=== PATIENT | female | born 1970 | race Caucasian/White ===

== ENCOUNTER → 2019-03-15 | Outpatient (CLI) | payer OTHER, SELFPAY ==
[2019-03-15 10:59] LABS: AST(SGOT) 19 U/L (15-37); Alanine Aminotransfer ALT/SGPT 20 U/L (13-56); Alkaline Phosphatase 58 U/L (45-117); Bilirubin, Direct 0.11 mg/dL (0.00-0.30); Cholesterol 172 mg/dL (200); Globulin 3.7 g/dL (2.2-4.2); High Density Lipoprotein 48 mg/dL; Protein, Total 7.7 g/dL (6.4-8.2); Triglycerides 50 mg/dL; Very Low Density Lipoprotein 10 mg/dL (5-40)
== END | disposition home or self-care (01) ==
LOC: MTLAB 08:02
PROVIDERS: Family Provider Physician Assistant; PCP Physician Assistant; Referring Provider Dermatology; Visit Provider Dermatology
DX: L70.0 Acne vulgaris (principal); Z79.899 Other long term (current) drug therapy
CPT/HCPCS: 36415; 80061; 80076

== ENCOUNTER → 2019-04-12 | Outpatient (CLI) | payer OTHER, SELFPAY ==
[2019-04-12 12:34] LABS: Internal QC Validated? YES +Cl - CLEAR BKGD; Pregnancy, Urine Negative Negative
== END | disposition home or self-care (01) ==
LOC: MTLAB 09:13
PROVIDERS: Family Provider Physician Assistant; PCP Physician Assistant; Referring Provider Dermatology; Visit Provider Dermatology
DX: L70.0 Acne vulgaris (principal); Z79.899 Other long term (current) drug therapy
CPT/HCPCS: 81025

== ENCOUNTER → 2019-05-16 | Outpatient (CLI) | payer OTHER, SELFPAY ==
[2019-05-16 13:33] LABS: Internal QC Validated? YES +Cl - CLEAR BKGD; Pregnancy, Urine Negative Negative
== END | disposition home or self-care (01) ==
LOC: MTLAB 11:50
PROVIDERS: Family Provider Physician Assistant; PCP Physician Assistant; Referring Provider Physician Assistant Medical; Visit Provider Physician Assistant Medical
DX: L70.0 Acne vulgaris (principal); Z79.899 Other long term (current) drug therapy
CPT/HCPCS: 81025

== ENCOUNTER → 2019-06-22 | Outpatient (CLI) | payer OTHER, SELFPAY ==
[2019-06-22 17:27] LABS: Internal QC Validated? YES +Cl - CLEAR BKGD; Pregnancy, Urine Negative Negative
== END | disposition home or self-care (01) ==
LOC: MTLAB 16:27
PROVIDERS: Family Provider Physician Assistant; PCP Physician Assistant; Referring Provider Physician Assistant Medical; Visit Provider Physician Assistant Medical
DX: L70.0 Acne vulgaris (principal); L57.0 Actinic keratosis; Z79.899 Other long term (current) drug therapy
CPT/HCPCS: 81025

== ENCOUNTER → 2019-08-04 08:05 | Outpatient (CLI) | payer OTHER, SELFPAY ==
[2019-08-04 10:39] LABS: Internal QC Validated? YES +Cl - CLEAR BKGD
[2019-08-04 10:40] LABS: Pregnancy, Urine Negative Negative
[2019-08-04 11:03] LABS: AST(SGOT) 20 U/L (15-37); Alanine Aminotransfer ALT/SGPT 19 U/L (13-56); Albumin, Serum 3.8 g/dL (3.2-5.0); Alkaline Phosphatase 66 U/L (45-117); Cholesterol 166 mg/dL (200); Globulin 3.6 g/dL (2.2-4.2); High Density Lipoprotein 45 mg/dL; Protein, Total 7.4 g/dL (6.4-8.2); Triglycerides 64 mg/dL; Very Low Density Lipoprotein 13 mg/dL (5-40)
[2019-08-07 13:56] LABS: LDL, Direct 120295 109 mg/dL (0-99)
== END ==
PROVIDERS: Family Provider Physician Assistant; PCP Physician Assistant; Referring Provider Physician Assistant Medical; Visit Provider Physician Assistant Medical
DX: L70.0 Acne vulgaris (principal); Z79.899 Other long term (current) drug therapy
CPT/HCPCS: 36415; 80061; 80076; 81025; 83721

== ENCOUNTER → 2019-09-08 13:34 | Outpatient (CLI) | payer OTHER, SELFPAY ==
[2019-09-08 15:42] LABS: Internal QC Validated? YES +Cl - CLEAR BKGD; Pregnancy, Urine Negative Negative
== END ==
PROVIDERS: Family Provider Physician Assistant; PCP Physician Assistant; Referring Provider Physician Assistant Medical; Visit Provider Physician Assistant Medical
DX: L70.0 Acne vulgaris (principal); Z79.899 Other long term (current) drug therapy
CPT/HCPCS: 81025

== ENCOUNTER → 2019-10-12 09:56 | Outpatient (CLI) | payer OTHER, SELFPAY ==
[2019-10-12 12:30] LABS: Internal QC Validated? YES +Cl - CLEAR BKGD; Pregnancy, Urine Negative Negative
== END ==
PROVIDERS: Family Provider Physician Assistant; PCP Physician Assistant; Referring Provider Physician Assistant Medical; Visit Provider Physician Assistant Medical
DX: L70.0 Acne vulgaris (principal); Z79.899 Other long term (current) drug therapy; D48.5 Neoplasm of uncertain behavior of skin; L71.8 Other rosacea
CPT/HCPCS: 81025

== ENCOUNTER → 2019-11-10 15:48 | Outpatient (CLI) | payer OTHER, SELFPAY ==
[2019-11-10 18:44] LABS: Internal QC Validated? YES +Cl - CLEAR BKGD; Pregnancy, Urine Negative Negative
== END ==
PROVIDERS: Family Provider Physician Assistant; PCP Physician Assistant; Referring Provider Physician Assistant Medical; Visit Provider Physician Assistant Medical
DX: L70.0 Acne vulgaris (principal); D48.5 Neoplasm of uncertain behavior of skin; Z79.899 Other long term (current) drug therapy; L71.8 Other rosacea
CPT/HCPCS: 81025

== ENCOUNTER → 2019-12-21 15:47 | Outpatient (CLI) | payer OTHER, SELFPAY ==
[2019-12-21 17:42] LABS: Internal QC Validated? YES +Cl - CLEAR BKGD; Pregnancy, Urine Negative Negative
== END ==
PROVIDERS: PCP Physician Assistant; Referring Provider Physician Assistant Medical; Visit Provider Physician Assistant Medical
DX: L70.0 Acne vulgaris (principal); Z79.899 Other long term (current) drug therapy; D48.5 Neoplasm of uncertain behavior of skin
CPT/HCPCS: 81025

== ENCOUNTER → 2022-11-27 | Outpatient (CLI) | payer OTHER, SELFPAY ==
--- NOTE | 2022-11-27 15:32 | US_ITS ---
STUDY: THYROID ULTRASOUND REASON FOR EXAM: Female, 52 years old. Enlarged thyroid. Evaluate for nodules. TECHNIQUE: Ultrasound evaluation of the thyroid was performed with real-time and static cordero-scale imaging. COMPARISON: None. FINDINGS: RIGHT LOBE: The right lobe of the thyroid gland measures 4.8 x 1.9 x 1.5 cm. There is a homogeneous echotexture. There are no demonstrated solid, cystic or complex lesions. Normal color flow and Doppler imaging. LEFT LOBE: The left lobe of the thyroid gland measures 4.5 x 1.6 x 1.0 cm. There is a homogeneous echotexture. There are no demonstrated solid, cystic or complex lesions. Normal vascularity on Doppler imaging. ISTHMUS: The isthmus measures 0.3 cm. There is a 2.2 x 1.1 x 0.4 cm lymph node adjacent to the right thyroid lobe. US/Thyroid IMPRESSION: 1. Normal ultrasound examination of the thyroid. 2. Right-sided cervical lymphadenopathy. Electronically Signed: Keith Woodard DO at 18:17 EST ,
== END | disposition home or self-care (01) ==
PROVIDERS: PCP Physician Assistant; Referring Provider Internal Medicine Endocrinology, Diabetes & Metabolism; Visit Provider Internal Medicine Endocrinology, Diabetes & Metabolism
DX: R59.0 Localized enlarged lymph nodes (principal); E03.8 Other specified hypothyroidism; E06.3 Autoimmune thyroiditis
CPT/HCPCS: 76536

== ENCOUNTER 2023-02-01 07:32 | Day surgery (SDC) | payer OTHER, SELFPAY ==
[2023-02-01] VITALS (7 sets, daily range): BP systolic 69–136; BP diastolic 45–67; PULSE 54–78; RESP 14–18; TEMP 36.1–36.6; O2SAT 98–100; BMI 23.6
[2023-02-01] MEDS: Lactated Ringers 1,000 ML 15 ML IV (08:24)
--- NOTE | 2023-02-01 08:50 | HP.PCM_ITS ---
History and Physical Date of Admission: 02/01/23 Date of Service:? 01/07/23 MR#: [id number] Acct: [id number] Name:BRENDA JOHNSON Rep #: [id number] : 1970 ? ? Provider: Dr. Eleanor Bello MD Age/Sex:? 52/F ? ? Location: [facility] Status: Signed Intake Vital Signs ? 01/07/2315:51 Height 5 ft 5 in Weight: 145 lb BMI 24.1 BP 136/77 H Blood Pressure Location Rt brachial Position Sitting Respiration 16 Pulse 70 Pulse Source Monitor Temp 97.2 F L Temp Source Temporal Pulse Oximetry (%) 98 Oxygen Delivery Method room air Intake Visit Reasons:?POSITIVE COLOGUARD Chief Complaint: Positive Cologuard Saw Runner Required: No Is patient in pain?: No Allergies acetaminophen [From Percocet] Allergy (Severe, Verified 01/07/23 15:53) Otherhydrocodone [From Vicodin] Allergy (Severe, Verified 01/07/23 15:53) Othermorphine Allergy (Severe, Verified 01/07/23 15:53) Otheroxycodone [From Percocet] Allergy (Severe, Verified 01/07/23 15:53) OtherPenicillins Allergy (Severe, Verified 01/07/23 15:53) Nauseageneral anesthesia Allergy (Severe, Uncoded 01/07/23 15:53) NEEDS FOLLOW-UP Medications meclizine 25 mg tablet 25 mg PO DAILY PRN 10/15/22 [History Confirmed 01/07/23] oqoecwnjfrrn-Py-rgbn-minerals 18 mg-0.4 mg tablet tab PO 10/15/22 [History Confirmed 01/07/23] naproxen sodium 220 mg tablet 220 mg PO Q12H PRN 10/15/22 [History Confirmed 01/07/23] sertraline 25 mg tablet 25 mg PO DAILY 10/15/22 [History Confirmed 01/07/23] levothyroxine 50 mcg tablet 50 mcg PO BID 01/07/23 [History] PFSH Medical History?(Updated 01/07/23 @ 16:[address] 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 History of section History of hernia surgery [place] teeth removed Family History?(Updated 01/07/23 @ 15:51 by Soni Wednesday) Father Diabetes Heart disease ?? ? valve replacementOther Anesthesia complication Anxiety Arthritis Bowel disease Hypertension Kidney disease Myocardial infarction Osteoporosis Prostate cancer Respiratory disease Skin cancer Social History? Smoking Status:? Never smoker alcohol intake:? never substance use type:? does not use what type of physical activity do you participate in:? bicycling and other details: hiking and pickleball HPI HPI HPI: 52-year-old female presents for diagnostic colonoscopy due to positive Cologuard.? Patient never had previous colonoscopy.? Patient denies a family history of colon cancer.? Patient denies any chronic abdominal pain/nausea/vomiting/reflux.? Patient states that her bowel movements can be irregular where she can go daily for a while and then go a week without going?this is normal for her. ROS General General: No weight change, appetite, fatigue, colon cancer, breast cancer or weakness HEENT HEENT: No difficulty swallowing, eye injury, eye surgery, swollen glands or hoarseness Endo Endocrine: Yes thyroid disease; No diabetes mellitus, thyroid cancer, Hair loss, heat intolerance or cold intolerance Skin Skin: No rash or changing moles Musc Musculoskeletal: No back problems, arthritis, rheumatoid arthritis, gout or joint pain Cardio Cardiovascular: Yes murmur; No pacemaker, heart disease, atrial fibrillation, high blood pressure, heart attack, heart stent, palpitations, shortness of breat with exertion or chest pain Psych Psychiatric: Yes anxiety; No depression or hearing voices Resp Respiratory: No shortness of breath, No sleep apnea, No cough, No COPD, No asthm a, No emphysema and No wheezing Gastro Gastrointestinal: No abdominal pain, No nausea or vomiting, No diarrhea, Yes constipation, No blood in stool, No acid reflux, No hemorrhoids, No ulcers, No gallbladder problem and No black,tarry stools Kapil Hematologic: No blood thinners, No blood disorders, No bleeding, No anemia and No blood clots Neuro Neurologic: No system reviewed and no additional complaints, except as documented, No as per HPI, No abnormal gait, No abnormal hearing, No abnormal movements, No abnormal speech, No behavioral changes, No burning sensations, No confusion, No convulsions, No disequilibrium, No dizziness, No localized weakness, No frequent falls, No headache(s), No lack of coordination, No loss of vision, No memory loss, No numbness, No other visual disturbances, No radicular pain, No restless legs, No sensory deficit, No syncope, No tingling, No tremor(s), No weakness and No other Exam Const General: cooperative, healthy appearing and no acute distress HENMT Head: normal to inspection Resp Effort & Inspection: normal respiratory effort Cardio Rate: regular rate GI Inspection: non-distended Palpation: soft, no guarding and nontender Skin General: no rashes or lesions noted Neuro General: patient oriented x3 Extrem General: no clubbing, cyanosis or edema Psych Affect: normal affect Assessment and Plan Assessment and Plan (1) Positive colorectal cancer screening using Cologuard test: ?Status:?Acute Plan I have discussed the above with the patient. I have offered the patient colonoscopy for evaluation. I have explained the risks/benefits of the procedure and described the procedure.? I have discussed the risks with the patient, including but not limited to:? infection, bleeding, perforation of the GI tract requiring emergency surgery, inability to complete the procedure, injury to any internal organs, complications of anesthesia, etc. - the patient understands and agrees to proceed. I have answered all the patient's questions to the patient's satisfaction and the patient has no further questions. The patient has been given instructions for the colon cleansing preparation.? 1 or 2 days of clears depending on how often she is having a bowel movement?discussed with patient.? Dulcolax MiraLAX split prep. Eleanor Bello M.D. Pager: [phone] [facility] [address] [place] [address], [facility], [address] [place] [address] Office: [phone] Coding Level of Care Code Off vis,new,level 3 Diagnoses Positive colorectal cancer screening using Cologuard test? R19.5 01/08/23 1048 <Electronically signed by Eleanor Bello MD> Date Eleanor Bello MD
--- NOTE | 2023-02-01 09:00 | COLBX_PTH ---
PATIENT: BRENDA BRYSON LOC: [facility] U#:[id number] AGE/SX: 52/F ROOM: RE02/01/[address]: Dr. Eleanor Bello MD : 1970 BED: DIS: 02/01/2023 SPEC #: [id number] RECD: 02/01/23 14:23 STATUS: KATERYNA DEVI #: [id number] REYNA: 02/01/23 09:[address]: Eleanor Bello DEPT: SURGICAL PATHOLOGY RECD BY: Jessica J Jayme ENTERED: 02/02/23 07:57 SP TYPE: COLON BX OTHR DR: JUAN Perkins Tissues: A - Ascending colon B - Transverse colon Procedures: Surgery Specimen Level IV HEADER OPERATION: Colonoscopy (MAC), polypectomy, biopsy PRE-OP DIAGNOSIS: Positive Cologuard TISSUE SUBMITTED: A ? Polyp ascending colon, B ? Polyp transverse colon MICROSCOPIC DIAGNOSIS A. Polyp ascending colon, polypectomy: Fragments of hyperplastic polyp. See comment. B. Polyp transverse colon, biopsy: Fragments of hyperplastic polyp. JOB:jojo 02/03/2023 COMMENT A. A few of the fragments also show changes suggestive of submucosal lipoma. MICROSCOPIC DESCRIPTION Slides are reviewed. GROSS DESCRIPTION A - Received in fixative is one container labeled with the patient's name and designated polyp ascending colon. The specimen consists of multiple irregular fragments of light acuna soft tissue that in aggregate measure 1.5 x 1.0 x 0.3 cm. The specimen is totally submitted in one cassette. B - Received in fixative is one container labeled with the patient's name and designated polyp transverse colon. The specimen consists of two irregular fragments of light acuna soft tissue that in aggregate measure 0.5 x 0.3 x 0.1 cm. The specimen is totally submitted in one cassette. / JOB:jojo 02/02/2023 TC:5 CPT: 04405 x2
--- NOTE | 2023-02-01 10:07 | OP.CCLET_ITS ---
02/01/2023 Isha Klein Re : Colonoscopy procedure for Fabi Klein This procedure was performed on Wednesday, February 01, 2023. My impressions and recommendations are as follows: Impressions : - Hemorrhoids found on perianal exam. - One 6 mm polyp in the ascending colon, removed piecemeal using a hot snare. Resected and retrieved. Injected. - One less than 5 mm polyp in the transverse colon, removed with a cold biopsy forceps. Resected and retrieved. - Non-bleeding internal hemorrhoids. - The examination was otherwise normal. Recommendations : - Discharge patient to home. - Resume previous diet. - Continue present medications. - Await pathology results. - Repeat colonoscopy 1-3 years for surveillance based on pathology results. My findings are described in the full procedure note, which is enclosed. If I can be of further assistance, please feel free to contact me at Doctor phone number(s): , Work: . Sincerely, MD Eleanor Tellez MD 02/01/2023 10:07:03 AM This report has been signed electronically.
--- NOTE | 2023-02-01 10:07 | OP.COLON_ITS ---
Patient Name: Fabi Delacruz Procedure Date: 02/01/2023 8:54 AM Date of : 1970 Age: 52 Procedure: Colonoscopy Indications: Positive Cologuard test Providers: Eleanor Bello MD Medicines: Monitored Anesthesia Care Patient Profile: This is a 52 year old female. Last Colonoscopy: none. The patient's first colonoscopy is today. Complications: No immediate complications. Procedure: Pre-Anesthesia Assessment: - Prior to the procedure, a History and Physical was performed, and patient medications and allergies were reviewed. The patient's tolerance of previous anesthesia was also reviewed. The risks and benefits of the procedure and the sedation options and risks were discussed with the patient. All questions were answered, and informed consent was obtained. Prior Anticoagulants: The patient has taken no previous anticoagulant or antiplatelet agents. ASA Grade Assessment: Per anesthesia. After reviewing the risks and benefits, the patient was deemed in satisfactory condition to undergo the procedure. After I obtained informed consent, the scope was passed under direct vision. Throughout the procedure, the patient's blood pressure, pulse, and oxygen saturations were monitored continuously. The Colonoscope was introduced through the anus and advanced to the cecum, identified by the appendiceal orifice, ileocecal valve and palpation. The colonoscopy was somewhat difficult due to a tortuous colon. The patient tolerated the procedure well. The quality of the bowel preparation was good. Scope In: 9:07:13 AM Scope Withdrawal Time 0 hours 30 minutes 47 seconds Scope Out: 9:57:19 AM Total Procedure Duration Time 0 hours 50 minutes 6 seconds Findings: Hemorrhoids were found on perianal exam. A 6 mm polyp was found in the ascending colon. The polyp was sessile. The polyp was removed with a piecemeal technique using a hot snare. Resection and retrieval were complete. Area was successfully injected with Goog ink for tattooing--just proximal to the polypectomy site. A less than 5 mm polyp was found in the transverse colon. The polyp was sessile. The polyp was removed with a cold biopsy forceps. Resection and retrieval were complete. Non-bleeding internal hemorrhoids were found. The hemorrhoids were Grade I (internal hemorrhoids that do not prolapse). The exam was otherwise without abnormality. Impression: - Hemorrhoids found on perianal exam. - One 6 mm polyp in the ascending colon, removed piecemeal using a hot snare. Resected and retrieved. Injected. - One less than 5 mm polyp in the transverse colon, removed with a cold biopsy forceps. Resected and retrieved. - Non-bleeding internal hemorrhoids. - The examination was otherwise normal. Recommendation: - Discharge patient to home. - Resume previous diet. - Continue present medications. - Await pathology results. - Repeat colonoscopy 1-3 years for surveillance based on pathology results. Procedure Code(s): --- Professional --- 87024, Colonoscopy, flexible; with removal of tumor(s), polyp(s), or other lesion(s) by snare technique 48481, Colonoscopy, flexible; with directed submucosal injection(s), any substance 71356, 59, Colonoscopy, flexible; with biopsy, single or multiple Diagnosis Code(s): --- Professional --- K64.0, First degree hemorrhoids D12.2, Benign neoplasm of ascending colon D12.3, Benign neoplasm of transverse colon (hepatic flexure or splenic flexure) R19.5, Other fecal abnormalities CPT copyright 2017 [employer]. All rights reserved. The codes documented in this report are preliminary and upon band cutter review may be revised to meet current compliance requirements. MD Eleanor Tellez MD 02/01/2023 10:07:03 AM This report has been signed electronically. Number of Addenda: 0 Note Initiated On: 02/01/2023 8:54 AM
== END 2023-02-01 11:26 | disposition home or self-care (01) ==
LOC: EN 07:39 → AC 07:41
PROVIDERS: PCP Physician Assistant; Referring Provider Physician Assistant; Visit Provider Surgery
PROC: 0DJD8ZZ Inspection of Lower Intestinal Tract, Via Natural or Artificial Opening Endoscopic (ICD-10-PCS; CPT 45378; principal; 2023-02-01 08:55)
DX: D12.3 Benign neoplasm of transverse colon (principal); K64.0 First degree hemorrhoids; R19.5 Other fecal abnormalities; D12.2 Benign neoplasm of ascending colon; E06.3 Autoimmune thyroiditis
CPT/HCPCS: 45385; 45381; 45380; 88305; J7120; A4648; J2405

== ENCOUNTER → 2023-08-11 | Outpatient (CLI) | payer OTHER, SELFPAY ==
[2023-08-11 10:26] LABS: Erythrocyte Sedimentation Rate 6 mm/hr (0-30)
[2023-08-11 10:58] LABS: Vitamin B12 422 pg/mL (211-911); Vitamin D,25 Hydroxy 39.6 ng/mL
[2023-08-11 11:07] LABS: ALB/GLOB Ratio 0.9 RATIO (0.9-2.4); AST(SGOT) 28 U/L (15-37); Alanine Aminotransfer ALT/SGPT 25 U/L (13-56); Alkaline Phosphatase 95 U/L (45-117); Anion Gap 4 (5-15); BUN 19 mg/dL (7-18); Calcium,Total 9.6 mg/dL (8.5-10.1); Chloride 104 mmol/L (98-107); Cholesterol 209 mg/dL (200); EST Glomerular Filtration Rate 62 mL/min (>60); Est Glom Filt Rate - Afr Amer 75 mL/min (>60); Ferritin 85 ng/mL (8-252); Globulin 4.3 g/dL (2.2-4.2); Glucose 91 mg/dL (74-106); High Density Lipoprotein 57 mg/dL; Potassium 3.8 mmol/L (3.5-5.1); Protein, Total 8.3 g/dL (6.4-8.2); Sodium Level 138 mmol/L (136-145); T4 Free Direct 1.08 ng/dL (0.76-1.46); Thyroid Stim Hormone (TSH) 2.69 uIU/mL (0.358-3.74); Triglycerides 91 mg/dL; Very Low Density Lipoprotein 18 mg/dL (5-40)
[2023-08-16 12:08] LABS: Testosterone, % Free 1.94 % (0.50-2.80); Testosterone, Free 0.39 ng/dL (0.10-0.85); Testosterone, Total 20 ng/dL (4-50)
== END | disposition home or self-care (01) ==
LOC: MTLAB 08:15
PROVIDERS: PCP Physician Assistant; Referring Provider Internal Medicine Endocrinology, Diabetes & Metabolism; Visit Provider Internal Medicine Endocrinology, Diabetes & Metabolism
DX: E03.8 Other specified hypothyroidism (principal); E06.3 Autoimmune thyroiditis; E55.9 Vitamin D deficiency, unspecified
CPT/HCPCS: 36415; 80053; 80061; 82306; 82607; 82728; 84402; 84403; 84439; 84443; 85652

== ENCOUNTER → 2023-10-11 | Outpatient (CLI) | payer OTHER, SELFPAY ==
[2023-10-11 11:20] LABS: Rheumatoid Factor < 10.0 IU/mL (<15)
== END | disposition home or self-care (01) ==
LOC: MTLAB 08:12
PROVIDERS: PCP Physician Assistant; Referring Provider Orthopaedic Surgery; Visit Provider Orthopaedic Surgery
DX: M17.12 Unilateral primary osteoarthritis, left knee (principal)
CPT/HCPCS: 36415; 86431